=== PATIENT | male | born 1980 | race Caucasian/White ===

== ENCOUNTER 2017-04-08 08:27 | Day surgery (SDC) | payer OTHER ==
[~2017-04-08] VITALS: Ht 182.9 cm; Wt 108.9 kg
[2017-04-08] VITALS (7 sets, daily range): BP systolic 128–139; BP diastolic 65–86
[~2017-04-08 08:27] MED LIST: LEVO200T4 PO; ZYRT10CA PO
[2017-04-08] MEDS ORDERED: LR 1,000 ML IV ONE (08:45)
[2017-04-08] MEDS ORDERED: LIDOCAINE 2% INJ 100 MG/5 ML SDV (FOR ANES.) As Ordered ONE (09:18)
[2017-04-08] MEDS ORDERED: ONDANSETRON 4MG/2ML VIAL (J2405) As Ordered ONE (09:18)
[2017-04-08] MEDS ORDERED: PROPOFOL 200 MG/20 ML VIAL As Ordered ONE (09:18)
[2017-04-08] MEDS ORDERED: ROCURONIUM BROMIDE 50 MG/5 ML VIAL As Ordered ONE (09:18)
[2017-04-08] MEDS ORDERED: fentaNYL 100 MCG/2 ML INJECTION (J3010) As Ordered ONE ×2 (09:19→10:32)
[2017-04-08] MEDS ORDERED: MIDAZOLAM INJ 2 MG/2 ML VIAL (J2250) As Ordered ONE (09:19)
[2017-04-08] MEDS ORDERED: LIDOCAINE W/EPINEPHRINE 1% 20ML VIAL As Ordered ONE (10:01)
[2017-04-08] MEDS ORDERED: BUPIVACAINE/EPIN 0.5% 30 ML VIAL As Ordered ONE (10:01)
[2017-04-08] MEDS ORDERED: dexameTHASONE 4 MG/ML 1ML VIAL (J1100) As Ordered ONE (10:13)
[2017-04-08] MEDS ORDERED: GLYCOPYRROLATE INJ 0.2 MG/ML 2 ML VIAL As Ordered ONE (11:11)
[2017-04-08] MEDS ORDERED: NEOSTIGMINE 1MG/ML 5 ML SYRINGE (J2710) As Ordered ONE (11:13)
[2017-04-08] MEDS ORDERED: ONDANSETRON 4MG/2ML VIAL (J2405) IV PRN (12:00)
[2017-04-08] MEDS ORDERED: MEPERIDINE INJ 25 MG/ML VIAL (J2175) IV PRN (12:00)
[2017-04-08] MEDS ORDERED: fentaNYL 100 MCG/2 ML INJECTION (J3010) IV PRN (12:00)
[2017-04-08] MEDS ORDERED: MORPHINE 10 MG/ML 1ML VIAL IV PRN (12:00)
[2017-04-08] MEDS ORDERED: LR 1,000 ML IV SCH (12:00)
[2017-04-08] MEDS ORDERED: PERCOCET 5MG/325MG TAB PO PRN (12:00)
[2017-04-08] MEDS ORDERED: KETOROLAC 30 MG/ML VIAL (J1885) IV PRN (12:00)
[2017-04-08] MEDS: PERCOCET 5MG/325MG TAB PO PRN ×4 (12:31→22:05)
--- NOTE | 2017-04-08 15:05 | RO ---
DATE OF PROCEDURE: 04/08/2017 PREPROCEDURE DIAGNOSIS: Sleep apnea. POSTPROCEDURE DIAGNOSIS: Sleep apnea. PROCEDURE: Palatopharyngoplasty. SURGEON: Florencio Stock MD [employer] AUDITOR: ANESTHESIA: General. DESCRIPTION OF PROCEDURE: Under general anesthesia with the patient intubated, the patient was draped in the usual manner. A Montes-Jurgen mouth gag was inserted. The tonsillar area was infiltrated with Lidocaine with epinephrine and Marcaine. Using a Coblator setting at 6 and 4, the tonsil was dissected free from its bed on both sides. The base, the apex, and other areas were cauterized with the setting of 4 on the Coblator. There was a bit more bleeding than usual. The same procedure was performed on both sides. I cauterized the base, the apex, and other areas. Once this was done, the area was dried. Then, I made an incision in the posterior pillar, elevated muscle from inferior to superior. There was some bleeding here as well, which I controlled with suction cautery. Once the muscle flap was elevated, then I sutured it with #3-0 Vicryl to just posterior to the upper molar. This pulled the palate anterior-superior. This procedure was performed on both sides. The area was checked to make sure that there was no bleeding. Bleeding was controlled with suction cautery. 25 mL estimated blood loss at maximum. The patient was extubated and transferred to the recovery room in excellent condition.
[2017-04-08] MEDS: LR 1,000 ML IV SCH ×2 (16:46→22:00)
[2017-04-09] VITALS: BP 120/72
[2017-04-09] MEDS: PERCOCET 5MG/325MG TAB PO PRN ×2 (03:08→09:26)
[2017-04-09 04:00] VITALS: BP 132/84
[2017-04-09 08:00] VITALS: BP 131/84
[2017-04-09] MEDS ORDERED: OXYC1TAB23 PO (08:52)
== END 2017-04-09 10:15 | disposition home or self-care (01) ==
LOC: M SDC 08:27 → M PED 13:23 → M SDC 04-09 10:15
PROVIDERS: ATTEND Otolaryngology
DX: G47.33 Obstructive sleep apnea (adult) (pediatric) (principal); E03.9 Hypothyroidism, unspecified; R06.83 Snoring; E66.9 Obesity, unspecified; Z79.899 Other long term (current) drug therapy
CPT/HCPCS: 42145; 88302; J1100; J2250; J2405; J2710; J3010

== ENCOUNTER 2017-04-10 05:27 | Emergency (ER) | payer OTHER ==
[~2017-04-10] VITALS: Ht 182.9 cm; Wt 108.9 kg
[~2017-04-10 05:27] MED LIST changes: +OXYC1TAB23 PO
[2017-04-10 05:37] VITALS: BP 127/81
[2017-04-10] MEDS ORDERED: LR 1,000 ML IV ONE (06:30)
[2017-04-10] MEDS: PERCOCET 5MG/325MG TAB PO ONE ×2 (06:35→06:54)
[2017-04-10 07:00] LABS: BASO % 0.2 % (0.0-1.0); EOS # 0.2 K/mm3 (0.0-0.50); EOS % 1.5 % (0.0-3.0); LARGE UNSTAINED CELL # 0.1 K/mm3 (0.0-0.4); LARGE UNSTAINED CELL % 0.7 % (0.0-4.0); LYMPH # 1.1 K/mm3 (1.5-4.5); LYMPH % 7.5 % (24.0-44.0); MEAN CORPUSCULAR HEMOGLOBIN 30.2 pg (27.0-33.0); MEAN CORPUSCULAR HGB CONC 34.9 g/dl (32.0-36.5); MEAN CORPUSCULAR VOLUME 86.6 fl (80.0-96.0); MONO # 0.6 K/mm3 (0.0-0.8); MONO % 4.4 % (0.0-5.0); NEUTROPHILS # 11.1 K/mm3 (1.8-7.7); NEUTROPHILS % 85.7 % (36.0-66.0); PLATELET COUNT, AUTOMATED 173 k/mm3 (150-450); RED CELL DISTRIBUTION WIDTH 13.6 % (11.5-14.5); WHITE BLOOD COUNT 12.9 K/mm3 (4.0-10.0)
[2017-04-10] MEDS ORDERED: MORPHINE 4 MG/ML 1ML SYRINGE IV PRN (07:00)
[2017-04-10 07:22] LABS: ANION GAP 10 MEQ/L (8-16); BLOOD UREA NITROGEN 15 MG/DL (7-18); CALCIUM LEVEL 8.3 MG/DL (8.5-10.1); CARBON DIOXIDE LEVEL 27 MEQ/L (21-32); CHLORIDE LEVEL 104 MEQ/L (98-107); CREATININE FOR GFR 0.98 MG/DL (0.70-1.30); GLOMERULAR FILTRATION RATE > 60.0 (>60); GLUCOSE, FASTING 97 MG/DL (70-105); POTASSIUM SERUM 3.6 MEQ/L (3.5-5.1); SODIUM LEVEL 141 MEQ/L (136-145)
== END 2017-04-10 11:11 | disposition home or self-care (01) ==
LOC: EDBD 05:27 → M ED 06:13
DX: G89.18 Other acute postprocedural pain (principal); Z79.899 Other long term (current) drug therapy; J30.9 Allergic rhinitis, unspecified

== ENCOUNTER 2017-04-15 07:13 | Day surgery (SDC) | payer OTHER ==
[2017-04-15] VITALS (7 sets, daily range): BP systolic 120–129; BP diastolic 65–80
[~2017-04-15] VITALS: Ht 182.9 cm; Wt 108.9 kg
[2017-04-15] MEDS ORDERED: NS 1,000 ML IV ONE ×3 (07:45→08:35)
[2017-04-15 07:55] LABS: BASO % 0.3 % (0.0-1.0); EOS # 0.3 K/mm3 (0.0-0.50); EOS % 2.6 % (0.0-3.0); LARGE UNSTAINED CELL # 0.2 K/mm3 (0.0-0.4); LARGE UNSTAINED CELL % 1.6 % (0.0-4.0); LYMPH # 1.4 K/mm3 (1.5-4.5); LYMPH % 10.6 % (24.0-44.0); MEAN CORPUSCULAR HEMOGLOBIN 29.8 pg (27.0-33.0); MEAN CORPUSCULAR HGB CONC 35.1 g/dl (32.0-36.5); MONO # 0.5 K/mm3 (0.0-0.8); MONO % 4.5 % (0.0-5.0); NEUTROPHILS # 9.4 K/mm3 (1.8-7.7); NEUTROPHILS % 80.5 % (36.0-66.0); PLATELET COUNT, AUTOMATED 306 k/mm3 (150-450); RED CELL DISTRIBUTION WIDTH 13.3 % (11.5-14.5); WHITE BLOOD COUNT 11.7 K/mm3 (4.0-10.0)
[2017-04-15] MEDS ORDERED: fentaNYL 100 MCG/2 ML INJECTION (J3010) As Ordered ONE ×2 (07:58→09:40)
[2017-04-15] MEDS ORDERED: MIDAZOLAM INJ 2 MG/2 ML VIAL (J2250) As Ordered ONE (07:58)
[2017-04-15] MEDS ORDERED: BUPIVACAINE HCL 0.5% 30 ML VIAL As Ordered ONE (08:11)
[2017-04-15 08:13] LABS: ALBUMIN 3.9 GM/DL (3.2-5.2); ALBUMIN/GLOBULIN RATIO 0.91 (1.00-1.93); ALKALINE PHOSPHATASE 61 U/L (45-117); ALT/SGPT 52 U/L (12-78); ANION GAP 14 MEQ/L (8-16); AST/SGOT 32 U/L (15-37); BILIRUBIN,DIRECT 0.5 MG/DL (0.0-0.2); BILIRUBIN,TOTAL 1.5 MG/DL (0.2-1.0); BLOOD UREA NITROGEN 21 MG/DL (7-18); CALCIUM LEVEL 9.1 MG/DL (8.5-10.1); CARBON DIOXIDE LEVEL 17 MEQ/L (21-32); CHLORIDE LEVEL 104 MEQ/L (98-107); CREATININE FOR GFR 0.84 MG/DL (0.70-1.30); GLOMERULAR FILTRATION RATE > 60.0 (>60); GLUCOSE, FASTING 121 MG/DL (70-105); POTASSIUM SERUM 3.7 MEQ/L (3.5-5.1); SODIUM LEVEL 135 MEQ/L (136-145); TOTAL PROTEIN 8.2 GM/DL (6.4-8.2)
[2017-04-15 08:25] LABS: INR 1.09
--- NOTE | 2017-04-15 08:41 | REP ---
Portable chest: Single view. History: Post tonsillar bleed. Comparison study: No comparison study. Findings: There is discoid atelectasis in the left base above a slightly elevated left hemidiaphragm. The lungs are otherwise well inflated and clear. Pleural angles are sharp. Heart size is normal. Pulmonary vasculature is not increased. No bony abnormality is seen. Impression: Plate-like atelectasis left base. Otherwise no acute disease. Signed by Siva Boggs MD 04/15/2017 01:32 P
[2017-04-15] MEDS ORDERED: dexameTHASONE 4 MG/ML 1ML VIAL (J1100) As Ordered ONE (09:09)
[2017-04-15] MEDS ORDERED: SUCCINYLCHOLINE 100 MG/5 ML SYRINGE (J0330) As Ordered ONE (09:17)
[2017-04-15] MEDS ORDERED: PROPOFOL 200 MG/20 ML VIAL As Ordered ONE (09:17)
[2017-04-15] MEDS ORDERED: ROCURONIUM BROMIDE 50 MG/5 ML VIAL As Ordered ONE (09:18)
[2017-04-15] MEDS ORDERED: GLYCOPYRROLATE INJ 0.2 MG/ML 2 ML VIAL As Ordered ONE ×2 (09:31→09:43)
[2017-04-15] MEDS ORDERED: ONDANSETRON 4MG/2ML VIAL (J2405) As Ordered ONE (09:32)
[2017-04-15] MEDS ORDERED: LR 1,000 ML IV SCH (10:30)
[2017-04-15] MEDS ORDERED: PERCOCET 5MG/325MG TAB PO PRN (10:30)
[2017-04-15] MEDS ORDERED: IBUPROFEN 800 MG TAB PO PRN (10:30)
[2017-04-15] MEDS ORDERED: ONDANSETRON 4 MG TAB (S0181) PO PRN (10:30)
[2017-04-15] MEDS ORDERED: ONDANSETRON 4MG/2ML VIAL (J2405) IV PRN (10:30)
[2017-04-15] MEDS: fentaNYL 100 MCG/2 ML INJECTION (J3010) IV PRN ×3 (10:56→11:12)
[2017-04-15] MEDS ORDERED: MORPHINE 2 MG/ML 1ML SYRINGE As Ordered ONE (11:14)
[2017-04-15] MEDS ORDERED: MORPHINE 2 MG/ML 1ML SYRINGE IV PRN (11:30)
[2017-04-15] MEDS: HYDROcodone/APAP LIQUID 7.5-325MG 15ML UDC (LORTAB ELIXIR) PO PRN ×3 (11:43→21:21)
--- NOTE | 2017-04-15 13:33 | RO ---
DATE OF PROCEDURE: 04/15/2017 DATE OF PROCEDURE: 04/14/2017 PREOPERATIVE DIAGNOSIS: Post tonsillectomy hemorrhage. POSTOPERATIVE DIAGNOSIS: Post tonsillectomy hemorrhage. PROCEDURE: Exploration of tonsil bleeding with cauterization and oversewing of tonsil bleeding sites. SURGEON: Keith Mendiola MD [employer]: ANESTHESIA: INDICATION: This is a 36-year-old who underwent tonsillectomy and lateral pharyngoplasty for sleep apnea one week ago. He apparently began having some bright red bleeding from his mouth in the middle of the night and presented to the emergency room at 7 o'clock in the morning with active bleeding going on. On examination, he was seen to have a significant amount of clot in the right tonsil fossa. DESCRIPTION OF PROCEDURE: Satisfactory general endotracheal anesthesia was administered emergently. The patient was given a rapid induction anesthetic and was intubated successfully without any difficulty. The patient was then placed in Trendelenburg position and a Dione-Jurgen gag inserted. Immediatley, there was bright red bleeding into the pharynx. Both sides of the throat and both tonsil fossa seemed to be actively bleeding so therefore packs were placed in each side temporarily until each was ready for control. First, the right side was explored. There appeared to be some significant bleeding coming from the base of tonsil in a granulation area. This was first cauterized with suction cautery. Then, a few strategic #4-0 chromic sutures were placed in [id number] fashion over areas that seemed to be bleeding more actively. On the left side, there also appeared to be bleeding in the mid portion of the tonsil fossa where the posterior constricted muscle had been split down to the prevertebral fascia. This was oversewn with a #4-0 Vicryl [id number] suture. Small areas were then suction cauterized. After several attempts at cauterization of the right tonsil area, it was felt that the bleeding had been controlled adequately. The gag was released for 3 minutes and reinspection showed no active bleeding. The stomach was evacuated with a [place] sump tube and then the patient was awakened, extubated and sent to recovery in satisfactory condition.
[2017-04-15] MEDS ORDERED: SLF 3 ML SYR IV PRN (15:30)
[2017-04-15] MEDS: SLF 3 ML SYR IV SCH (22:00)
[2017-04-16] VITALS: BP 128/78
[2017-04-16] MEDS: HYDROcodone/APAP LIQUID 7.5-325MG 15ML UDC (LORTAB ELIXIR) PO PRN ×2 (01:25→05:12)
[2017-04-16 04:00] VITALS: BP 119/75
[2017-04-16] MEDS: SLF 3 ML SYR IV SCH (05:33)
[2017-04-16 08:00] VITALS: BP 113/69
--- NOTE | 2017-04-16 08:13 | ECGEPIP ---
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
== END 2017-04-16 12:00 | disposition home or self-care (01) ==
LOC: M ED 08:03 → M SDC 08:44 → M PED 12:04 → M SDC 04-16 12:00
PROVIDERS: ATTEND Specialist
DX: K91.840 Postprocedural hemorrhage of a digestive system organ or structure following a digestive system procedure (principal); G47.33 Obstructive sleep apnea (adult) (pediatric); E03.9 Hypothyroidism, unspecified; Z79.899 Other long term (current) drug therapy
CPT/HCPCS: 36415; 42962; 71010; 80048; 80076; 85025; 85610; 85730; 86850; 86900; 86901; 86920; 93005; 93041; 96374; 96375; 99285; J0330; J1100; J2250; J2405; J3010